=== PATIENT | male | born 1965 | race Caucasian/White ===

== ENCOUNTER 2023-04-25 20:07 | Observation (INO) | payer OTHER, SELFPAY ==
[2023-04-25] VITALS (13 sets, daily range): BP systolic 117–206; BP diastolic 68–95; PULSE 86–94; RESP 12–20; TEMP 36.3–36.7; O2SAT 93–98; BMI 47.3; BMI 49.8
--- NOTE | 2023-04-25 15:28 | ECG_ITS ---
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
--- NOTE | 2023-04-25 17:23 | P.ORPRC_ITS ---
Procedure Note Date of procedure: 04/25/23 Pre-op diagnosis: 1. Left distal fibula fracture with dislocation 2. Post. malleolus fract. Post-op diagnosis: other (1. Left distal fibular fracture/dislocation 2. Posterior malleolus fracture 3. Syndesmosis disruption) Procedure: Operation: Open reduction internal fixation left distal fibular fracture Open reduction internal fixation syndesmosis Operation performed: After informed consent was obtained the patient was brought to the operating room where A well-padded proximal left thigh tourniquet was placed and the left leg was prepped and draped in usual sterile fashion. Leg was elevated, exsanguinated, a nd the tourniquet was inflated to 300 mmHg. An 8 cm incision was made overlying the distal fibula fracture. Blunt dissection was carried down through soft tissue. Fracture was identified and found to be minimally non comminuted. The fracture was reduced with pointed reduction forceps. A lag screw was placed from anterior to posterior in the standard fashion over drilling the near cortex and then placement of 3.5 bicortical screw. Moderate fixation was achieved with this. Next the Synthes distal fibula plate was placed. Placement of this plate did not allow for good placement of a syndesmosis fixation. A one third semitubular plate was next selected and this allowed for appropriate placement of the syndesmosis fixation. The fracture was secured proximally with 1 bicortical nonlocking 3.5 mm screw. Next 2 screws were placed distally and a unicortical locking fashion. Remaining 2 proximal screws were placed in a bicortical fashion, 1 locking and 1 nonlocking. X-rays at this point revealed a reduced distal fibula but with an ankle mortise that was severely widened.. Posterior malleolar fracture was reduced. Next a reduction clamp was placed to reduce the syndesmosis. A Synthes fibula ankle implant was the next placed through one of the holes in the one third semitubular plate. This was placed in the standard fashion of placement of the screw, drilling and then placement of the implant. Appropriate tension was next achieved in the clamp was removed. The syndesmosis stayed reduced in multiple planes. The wound was irrigated and closed in layers in standard fashion. Sterile dressing was placed followed by a well-padded plaster posterior splint with stirrups. Tourniquet was deflated. Patient was brought to the recovery room in stable condition. There were no intraoperative or immediate postoperative complications. Anesthesia: regional and spinal Surgeon: Hernesto Bach Pathology: none sent Condition: stable Disposition: PACU
[2023-04-25] MEDS: CEFAZOLIN SODIUM 3,000 MG in 0.9 % SODIUM CHLORIDE 100 ML 200 MG IV (17:45)
[2023-04-25] MEDS: LACTATED RINGER'S SOLUTION 1,000 ML 50 ML IV (18:30)
--- NOTE | 2023-04-25 18:44 | FL_ITS ---
[address] [address] Patient Name: EZ MCKEON MRN: [id number] date: 1965 Sex: M Assigned Patient Location: [facility] Current Patient Location: [place] Accession/Order Number: [id number] Exam Date: 04/25/2023 17:55 Report Date: 04/26/2023 09:07 At the request of: ELVIRA ANGELES Procedure: FL fluoroscopy <1hr NON-READ EXAM: FL fluoroscopy <1hr NON-READ HISTORY: TECHNIQUE: FINDINGS: Please see Operative Report. Electronically authenticated by: RADIOLOGIST NO Date: 04/26/2023 09:07
--- NOTE | 2023-04-25 20:44 | PC.NURSE ---
Pt. is a post-op left tib/fib repair. Patient has sensation to left thigh unable to move or feel toes good capillary refil warm to touch. Patient is starting to get some sensation to right leg and can wiggle toes.
[2023-04-25] MEDS: LACTATED RINGER'S SOLUTION 1,000 ML 75 ML IV (20:57)
[2023-04-25] MEDS: OXYCODONE HCL/ACETAMINOPHEN 5MG/325MG 2 TAB PO (21:56)
[2023-04-25] MEDS: HYDRALAZINE HCL 20 MG/ML VIAL 10 MG IVP (21:57)
[2023-04-26] VITALS (8 sets, daily range): BP systolic 169–179; BP diastolic 72–84; PULSE 94–101; RESP 16–18; TEMP 36.4; O2SAT 87–98
[2023-04-26] MEDS: HYDROMORPHONE HCL 1 MG/ML CARTRIDGE 0.5 MG IVP (00:37)
[2023-04-26] MEDS: OXYCODONE HCL/ACETAMINOPHEN 5MG/325MG 2 TAB PO ×3 (02:53→12:40)
[2023-04-26] MEDS: CEFAZOLIN SODIUM 1,000 MG VIAL 2000 MG IV (04:08)
[2023-04-26] MEDS: LOSARTAN POTASSIUM 50 MG TABLET 100 MG PO (08:30)
[2023-04-26] MEDS: FERROUS SULFATE 325 MG TABLET PO (08:31)
[2023-04-26] MEDS: PIOGLITAZONE 15 MG TABLET 30 MG PO (08:31)
[2023-04-26 10:52] LABS: Glucometer 126 mg/dL (74-106)
--- NOTE | 2023-04-26 11:13 | P.HP_ITS ---
<Statement entered by Harinder Coronado MD - 04/26/23 17:06> Patient seen and examined, agree with assessment and plan below. Transferred from outlying facility for surgery. Postoperatively noted increased sedation and kept overnight. Doing well and pain controlled. Getting along with PT. Discharge home and f/u with ortho. Diagnosis: 1. Distal fibula fracture 2. DM2 3. HTN H&P: HPI History of Present Illness Chief complaint: SURGERY Narrative: 04/26/23 1014 This is a 57-year-old male patient with a past medical history as outlined below including DM 2, hypertension, and hyperlipidemia was directly admitted from Dr. Bach's office yesterday afternoon. The patient works at [employer] in [place] and experienced a mechanical slip and fall at work on the steps. He suffered a significant fracture of his left ankle and his foot was angulated abnormally after the fall. He was taken directly to Dr. Bach's office in [place] where x-rays were obtained and which revealed a distal fibula fracture and a posterior malleolus fracture. As no beds were available in the hospitals around [place] and Dr Bach was in [facility], he was transferred to this facility for emergent surgery as an add on case. Discharge was initially planned after surgery, but the patient had difficulty coming out of anesthesia and was admitted in observation overnight to the hospitalist service. At the time of my exam the patient is resting comfortably in bed. He just finished working with PT, and although he complains of pain, it is adequately controlled with p.o. pain medications. He reports feeling woozy in PACU and also struggled with double vision and this was why he was admitted last night. He reports all of wooziness and diplopia have completely resolved. He denies any chest pain, shortness of breath, abdominal pain, or any other acute complaint other than fracture pain of his left lower extremity. As his postop symptoms have resolved and his pain is adequately controlled, he is being discharged home in stable condition. He should follow the postop instructions from Dr. Bach as provided in the discharge paperwork. He should follow-up with Dr. Bach as scheduled. He is non-weightbearing to the affected extremity and is to use a walker at all times with ambulation. Review of Systems ROS Status of ROS 10 or more systems reviewed and unremark able except as noted in history and below PFSH [facility] Medical History (Updated 04/26/23 @ 11:12 by Kaycee Gilbert NP) Hypertension ?I10 - Essential (primary) hypertension (ICD-10) Diabetes ?E11.9 - Type 2 diabetes mellitus without complications (ICD-10) High cholesterol ?E78.00 - Pure hypercholesterolemia, unspecified (ICD-10) Family History (Updated 04/25/23 @ 20:21 by Vicenta Dodge) Mother Family history of COPD (chronic obstructive pulmonary disease) Family history of CHF (congestive heart failure) Family history of diabetes mellitus Family history of hypertension Father Family history of diabetes mellitus Family history of hypertension Family history of myocardial infarction Social History (Updated 04/25/23 @ 20:23 by Vicenta Dodge) Within the past year, how often did you have a drink containing alcohol: never Within the past year, how often did you have six or more drinks on one occasion: never Score interpretation: A score less than 4 is consistent with normal alcohol consumption. 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[employer] Known occupational exposures/hazards: No Highest level of school completed/degree received: some college, no degree Do you want help with school or training: No Are you now , , , , never or living with a partner: How often do you get together with friends or relatives: 3 or more times per week How often do you attend evangelical or taoism services: never Do you belong to any clubs or organizations such as evangelical groups unions, fraternal or athletic groups, or school groups: no Total score: 2 Score interpretation: A score of greater than or equal to 2 indicates the lowest level of social isolation. Little interest or pleasure in doing things: not at all Feeling down, depressed, or hopeless: not at all Feel stressed/tense/nervous/anxious/difficulty sleeping: only a little Due to disability, difficulty making decisions: No Do you think of yourself as: straight/heterosexual Gender Identity: male Meds Home Medications and Allergies Home Medications Medication Instructions Recorded Confirmed Type ertugliflozin 15 mg tablet 15 mg PO DAILY 04/25/23 04/25/23 History (Steglatro) ferrous sulfate 325 mg (65 mg 325 mg PO DAILY 04/25/23 04/25/23 History iron) tablet oxycodone-acetaminophen 5 mg-325 1 tab PO Q4H PRN pain #30 tabs 04/25/23 Rx mg tablet (Percocet) pioglitazone 30 mg tablet 30 mg PO DAILY 04/25/23 04/25/23 History insulin glargine-yfgn 100 unit/mL 55 unit subcut QPM 04/26/23 04/26/23 History (3 mL) subcutaneous pen losartan 100 mg tablet 100 mg PO .QD 04/26/23 04/26/23 History metformin 500 mg tablet 500 mg PO BID 04/26/23 04/26/23 History simvastatin 40 mg tablet 40 mg PO QPM 04/26/23 04/26/23 History Allergies Allergy/AdvReac Type Severity Reaction Status Date / Time lisinopril Allergy Mild Uncoded 04/25/23 15:05 Exam Constitutional Vital Signs, click to edit/add: Last Vital Signs Temp 97.6 F 04/26/23 04:52 Pulse 94 H 04/26/23 09:19 Resp 18 04/26/23 08:00 BP 177/72 H 04/26/23 09:19 Pulse Ox 90 L 04/26/23 04:52 O2 Del Method Room Air 04/26/23 04:52 Common normals: no apparent distress, oriented x3, alert and well nourished General appearance: cooperative Orientation/consciousness: Yes awake HENDE Common normals: normocephalic, head/scalp atraumatic, hearing grossly normal bilaterally, external nose normal and moist oral mucous membranes Eye Common normals: PERRL, EOMs intact bilaterally, conjunctivae normal and no scleral icterus Alignment: alignment normal Eyelid: eyelids normal Neck & C-Spine Common normals: full ROM, supple and no JVD Chest Common normals: inspection of chest normal Chest: symmetrical chest wall rise Respiratory Common normals: normal respiratory effort, no retractions, no use of accessory muscles and clear to auscultation bilaterally Effort & inspection: able to speak in complete sentences Cardio Common normals: no JVD, regular rate, regular rhythm, S1 normal heart sound, S2 normal heart sound, no gallops, no clicks, no rub and peripheral pulses 2+ throughout Heart sounds: murmur (HSM 2/6) GI Common normals: Normal to inspection, nondistended, normoactive bowel sounds present, soft to palpation, non-tender, no hepatosplenomegaly, no masses and no bruits Bladder/kidney exam: bladder normal to palpation Extremity Common normals: normal capillary refill and no pedal edema General: normal exam except as noted; no clubbing and no cyanosis Left lower extremity: lower leg (Surgical drsg w/ splint in place. Good CMS to forefoot) Neuro Cornell Coma Scale: GCS not evaluated Common normals: CN's II-XII intact bilaterally, moves all extremities, no focal motor deficits and no sensory deficits noted Speech: speech normal Motor exam: strength 5/5 throughout Psych Common normals: mental status grossly normal, thought process normal, affect normal and activity/motor behavior normal Results Pulse Oximetry Attestation: I have reviewed the pertinent pulse oximetry results. Assessment and Plan Assessment and Plan (1) Closed left fibular fracture: Assessment and Plan: ACUTE * Adm observation * s/p ORIF per Dr Bach on 04/25/23 * Please see the operative note * Continue PO Percocet for post op pain * Prescribed by the orthopedic service - defer post op pain management to ortho * D/C home w/ post op instructions from Dr Bach (2) Fracture, posterior malleolus: Assessment and Plan: ACUTE * see above (3) Ankle syndesmosis disruption: Assessment and Plan: ACUTE * See above (4) Hypertension: Assessment and Plan: CHRONIC * Continue home losartan (5) Diabetes: Assessment and Plan: CHRONIC * Continue home Lantus, metformin, pioglitazone, and Steglatro (6) High cholesterol: Assessment and Plan: CHRONIC * Continue home statin
--- NOTE | 2023-04-26 11:26 | CM.NOTE ---
Rounds made with ron Kirby to discharge to home this afternoon. PT will evaluate pt prior to discharge.
--- NOTE | 2023-04-26 13:22 | SWNOTE1 ---
PAIGE spoke with case management and pt will need walker. Pt will need to use workers comp from injury and for walker. PAIGE called over to [facility] in [place], pt lives there, and they will need script and documentation. PAIGE went to talk to pt, but he was discharged already. PAIGE called pt's cell phone and spoke with him. He would like SW to try and get walker. PAIGE sent information to [facility]. PAIGE let pt and know to call [facility] if they have not heard anything by tomorrow.
--- NOTE | 2023-04-27 10:07 | CM.DCFOLLOWU ---
Person spoke with:patient How are you feeling? well How is your pain? no pain Did you understand your discharge instructions? yes Do you have any questions about your discharge instructions? no Were you given any prescriptions at discharge? yes Were you able to get your prescriptions filled? yes Do you understand how to take your medications as ordered? yes Do you have any questions about your follow up appointment and do you plan to keep your follow up appointment? no questions, follow up 05/10/23 Is there anything else that you would like to discuss? NO Questions/Comments/Concerns/Other: N/A
== END 2023-04-26 12:47 | disposition home or self-care (01) ==
LOC: MS 20:11 → SURGOUT 04-26 08:36 → MS 04-26 08:36
PROVIDERS: Orthopaedic Surgery; Admitting Provider Family Medicine; Visit Provider Family Medicine
PROC: (CPT 1480; principal; 2023-04-25 15:15)
DX: S82.832A Other fracture of upper and lower end of left fibula, initial encounter for closed fracture (principal); S93.432A Sprain of tibiofibular ligament of left ankle, initial encounter; E11.9 Type 2 diabetes mellitus without complications; I10 Essential (primary) hypertension; E78.00 Pure hypercholesterolemia, unspecified; Z79.899 Other long term (current) drug therapy; Z79.84 Long term (current) use of oral hypoglycemic drugs; Z79.4 Long term (current) use of insulin; W10.9XXA Fall (on) (from) unspecified stairs and steps, initial encounter
CPT/HCPCS: 27792; 27829; 36415; 64445; 76000; 82948; 93005; 96374; 97162; C1713; G0378; J0360; J0665; J0690; J1170; J1885; J2250; J2371